=== PATIENT | female | born 1990 | race Caucasian/White ===

== ENCOUNTER 2024-09-09 06:54 | Day surgery (SDC) | payer OTHER ==
[~2024-09-09] VITALS: Ht 162.6 cm; Wt 76.7 kg
[~2024-09-09 06:54] MED LIST: GLYCOPYRROLATE INJ 0.2 MG/ML 2 ML VIAL As Ordered ONE; KETOROLAC 30 MG/ML 1 ML VIAL As Ordered ONE; LIDOCAINE 2% 100 MG/5 ML SDV (FOR ANES.) As Ordered ONE; MIDAZOLAM INJ 2 MG/2 ML VIAL As Ordered ONE; MOTR200T44 PO; ONDANSETRON 4MG 2ML VIAL As Ordered ONE; PRENTAB20 PO; TAMS1CAP17 PO; TYLE325T5 PO; dexAMETHasone 4 MG/ML 1 ML VIAL As Ordered ONE
[2024-09-09] MEDS ORDERED: LR 1,000 ML IV SCH (07:40)
[2024-09-09] MEDS: ceFAZolin SOD 2 GM IV ONCE IV ONE (10:00)
[2024-09-09] MEDS ORDERED: ACETAMINOPHEN 1000MG/100ML IV BAG As Ordered ONE (10:09)
[2024-09-09] MEDS: ISOVUE-300 61% 100 ML VIAL As Ordered ONE (10:32)
[2024-09-09] MEDS ORDERED: ONDANSETRON 4MG 2ML VIAL IV PRN (10:45)
[2024-09-09 11:33] VITALS: BP 121/91; TEMP 97.2; O2SAT 100
== END 2024-09-09 11:52 | disposition home or self-care (01) ==
LOC: M SDC 06:54
PROVIDERS: ATTEND Urology
DX: N13.2 Hydronephrosis with renal and ureteral calculous obstruction (principal); Z98.51 Tubal ligation status; Z79.899 Other long term (current) drug therapy; Z88.0 Allergy status to penicillin
CPT/HCPCS: 52332; 52352; 74420; 82365; C1769; C1894; C2617; J0131; J0690; J1100; J1596; J1885; J2250; J2405; J3010; Q9967